=== PATIENT | female | born 1995 ===

== ENCOUNTER 2022-02-02 14:41 | Emergency (ER) | payer OTHER ==
[~2022-02-02] VITALS: Ht 160 cm; Wt 90.9 kg
[2022-02-02] MEDS ORDERED: SODIUM CHLORIDE 0.9% 1,000 ML IV ONE (15:00)
[2022-02-02] MEDS ORDERED: LORazepam 2MG/ML-1ML VIAL IV ONE (15:00)
[2022-02-02 15:06] VITALS: BP 121/58
[2022-02-02 15:13] LABS: Basophils # (auto) 0 10 ^3/uL (0-0.2); Basophils % (auto) 0.4 % (0.0-2.0); Eosinophils # (auto) 0.1 10 ^3/uL (0-0.8); Eosinophils % (auto) 0.8 % (0.0-7.0); Hematocrit 41.3 % (36.0-46.0); Hemoglobin 13.5 g/dL (12.2-16.2); Lymphocytes # (auto) 2.4 10 ^3/uL (0.4-5.4); Lymphocytes % (auto) 27.7 % (10.0-50.0); Mean Corpuscular Hemoglobin 29.4 pg (28.0-32.0); Mean Corpuscular Hgb Conc. 32.7 g/dL (32.0-36.0); Monocytes # (auto) 0.4 10 ^3/uL (0-1.3); Monocytes % (auto) 4.1 % (0.0-12.0); Neutrophils # (auto) 5.7 10 ^3/uL (1.6-8.6); Red Blood Cells 4.59 10^6/uL (4.0-5.20); Red Cell Distribution Width 13.2 % (11.8-14.3); White Blood Cell 8.5 10^3/uL (4.4-10.8)
[2022-02-02 15:35] LABS: Albumin 3.7 g/dL (3.4-5.0); BUN/Creatinine Ratio 9.5; Calcium 8.7 mg/dL (8.5-10.1); Potassium 4.2 mmol/L (3.5-5.1)
[2022-02-02 15:38] LABS: Bilirubin, Total 0.2 mg/dL (0.2-1.0); Total Protein 6.8 g/dL (6.4-8.2)
[2022-02-02] MEDS ORDERED: ONDANSETRON HCL 4 MG/2 ML VIAL IV ONE (15:45)
== END 2022-02-02 16:27 | disposition home or self-care (01) ==
LOC: ER 14:41 → EDBD 14:41 → ER 16:24
DX: G40.802 Other epilepsy, not intractable, without status epilepticus (principal); F12.10 Cannabis abuse, uncomplicated; Z88.0 Allergy status to penicillin
CPT/HCPCS: 36415; 70450; 80053; 84484; 85025; 96361; 96374; 96375; 99284; J2405; J7030